=== PATIENT | female | born 1990 | race Caucasian/White ===

== ENCOUNTER 2017-10-31 15:51 | Emergency (ER) | payer OTHER ==
[~2017-10-31] VITALS: Ht 154.9 cm; Wt 104.5 kg
[2017-10-31] MEDS ORDERED: [UNRECOGNIZED DRUG - CODE] PO (15:58)
[2017-10-31] MEDS ORDERED: AMOX500C2 PO (16:00)
[2017-10-31] MEDS ORDERED: DEXAMETHASONE SOD PHOS 4 MG/ML 5 ML VIAL IM ONE (16:45)
[2017-10-31] MEDS: IBUPROFEN 600 MG TABLET PO ONE ×2 (16:52→16:57)
[2017-10-31] MEDS ORDERED: ACETAMINOPHEN 500 MG TABLET PO ONE (17:45)
[2017-10-31 19:19] VITALS: BP 126/68
== END 2017-10-31 19:36 | disposition home or self-care (01) ==
LOC: EMS 15:52
DX: J02.8 Acute pharyngitis due to other specified organisms (principal); B97.89 Other viral agents as the cause of diseases classified elsewhere; R51 Headache
CPT/HCPCS: 87430; 96372; 99283; J1100

== ENCOUNTER 2021-03-16 23:00 | Emergency (ER) | payer MEDICAID, OTHER ==
[~2021-03-16] VITALS: Ht 152.4 cm; Wt 114.9 kg
[~2021-03-16 23:00] MED LIST: AMOX500C2 PO
[2021-03-16 23:04] VITALS: BP 137/101
[2021-03-17 00:52] LABS: COVID AG,FIA SOURCE NASOPHARYNGEAL
[2021-03-17] MEDS ORDERED: GuaiFENesin/D-METHORPHAN [SUGAR-FREE] 200-20MG/10 ML SYRUP UDCUP PO ONE (01:45)
[2021-03-17] MEDS ORDERED: CEPHALEXIN MONOHYDRATE 500 MG CAPSULE PO ONE (01:45)
== END 2021-03-17 01:59 | disposition home or self-care (01) ==
LOC: EMS 23:07
DX: J02.9 Acute pharyngitis, unspecified (principal); Z20.822 Contact with and (suspected) exposure to COVID-19
CPT/HCPCS: 87426; 99283; U0003

== ENCOUNTER 2021-03-17 22:23 | Emergency (ER) | payer MEDICAID | END 2021-03-17 23:00 | disposition left against medical advice (07) | LOC: EMS 22:26 | DX: R10.9 Unspecified abdominal pain (principal); Z53.21 Procedure and treatment not carried out due to patient leaving prior to being seen by health care provider ==

== ENCOUNTER 2022-09-16 01:55 | Emergency (ER) | payer MEDICAID ==
[~2022-09-16] VITALS: Ht 160 cm; Wt 112.7 kg
[2022-09-16 01:56] VITALS: BP 154/95
== END 2022-09-16 02:01 | disposition left against medical advice (07) ==
LOC: EMS 01:56
DX: R10.2 Pelvic and perineal pain (principal); Z53.21 Procedure and treatment not carried out due to patient leaving prior to being seen by health care provider

== ENCOUNTER 2025-06-03 12:14 | Emergency (ER) | payer MEDICAID ==
[~2025-06-03] VITALS: Ht 152.4 cm; Wt 100.0 kg
[2025-06-03 12:19] VITALS: TEMP 99
[2025-06-03 12:44] LABS: PLATELET COUNT (AUTO) 355 K/uL (150-450); RED BLOOD CELL COUNT(AUTO) 4.37 MIL/uL (4.00-5.20); RED CELL DISTRIBUTION WIDTH 13.6 % (11.5-14.5); WHITE BLOOD COUNT (AUTO) 9.4 K/uL (4.5-11.0)
[2025-06-03 12:48] LABS: APPEARANCE,URINE HAZY (CLEAR); GLUCOSE, URINE (UA) NEGATIVE (NEGATIVE); LEUKOCYTE ESTERASE ,URINE NEGATIVE (NEGATIVE); NITRATE,URINE NEGATIVE (NEGATIVE); OCCULT BLOOD,URINE LARGE (NEGATIVE); SPECIFIC GRAVITIY, URINE 1.020 (1.003-1.030)
[2025-06-03 12:52] LABS: CALCIUM, TOTAL 8.1 mg/dL (8.8-10.5); CREATININE 0.74 mg/dL (0.60-1.30); GLOMERULAR FILTR. RATE CALC > 60 mL/min (>60); GLUCOSE,RANDOM 133 mg/dL (70-110); SODIUM SERUM 138 mmol/L (136-145); UREA NITROGEN, BLOOD 11 mg/dL (7-18)
[2025-06-03 13:00] LABS: SQUAMOUS EPITHELIAL CELL,UR Few /LPF (None Seen)
[2025-06-03] MEDS: ACETAMINOPHEN 500 MG TABLET PO ONE (13:04)
[2025-06-03] MEDS: IBUPROFEN 600 MG TABLET PO ONE (13:04)
[2025-06-03] MEDS ORDERED: NORE-109 PO (14:24)
[2025-06-03] MEDS ORDERED: TRAN650T5 PO (14:24)
[2025-06-03] MEDS ORDERED: IBUP-1554 PO (14:27)
[2025-06-03 14:35] VITALS: BP 118/76; PULSE 78; RESP 18; O2SAT 99
== END 2025-06-03 15:00 | disposition home or self-care (01) ==
LOC: EMS 12:14
DX: N93.9 Abnormal uterine and vaginal bleeding, unspecified (principal); N92.0 Excessive and frequent menstruation with regular cycle; Z79.3 Long term (current) use of hormonal contraceptives; Z79.818 Long term (current) use of other agents affecting estrogen receptors and estrogen levels
CPT/HCPCS: 76856; 80048; 81001; 84703; 85025; 99284